=== PATIENT | female | born 1985 ===

== ENCOUNTER 2018-06-27 22:37 | Emergency (ER) | payer OTHER ==
--- NOTE | 2018-06-27 23:12 | ER Document Report ---
ED Medical Screen (RME) - General Chief Complaint: Nausea/Vomiting Stated Complaint: FLU SYMPTOMS Time Seen by Provider: 06/27/18 23:10 Notes: Cough, body aches, flulike illness. Symptoms for 2 weeks. Nausea and vomiting and right sided low back pain today. I have treated and performed a rapid initial assessment of this patient. A comprehensive ED assessment and evaluation of the patient, analysis of test results and completion of medical decision making process will be conducted by additional ED providers. PHYSICAL EXAMINATION: GENERAL: Malaised appearing LUNGS: Breath sounds clear to auscultation bilaterally and equal. No wheezes rales or rhonchi. HEART: Regular rate and rhythm without murmurs, rubs, gallops. ABDOMEN: Soft, nondistended abdomen. No guarding, no rebound. Normal bowel sounds present. No CVA tenderness bilaterally. + mild epigastric tenderness (cannot elicit thorough abd exam w/o table, however). Extremities: No cyanosis, clubbing, or edema b/l. NEUROLOGICAL: Normal speech, normal gait. PSYCH: Normal mood, normal affect. TRAVEL OUTSIDE OF THE [place] IN LAST 30 DAYS: No - Related Data Allergies/Adverse Reactions: No Known Allergies Allergy (Unverified 06/27/18 22:38) Past Medical History - Social History Chew tobacco use (# tins/day): No Frequency of alcohol use: None Drug Abuse: None Renal/ Medical History: Denies: Hx Peritoneal Dialysis Physical Exam - Vital signs Vitals: Temp Pulse Resp BP Pulse Ox 99.6 F 100 17 146/77 H 99 06/27/18 22:43 06/27/18 22:43 06/27/18 22:43 06/27/18 22:43 06/27/18 22:43 Course - Vital Signs Vital signs: Temp Pulse Resp BP Pulse Ox 99.6 F 100 17 146/77 H 99 06/27/18 22:43 06/27/18 22:43 06/27/18 22:43 06/27/18 22:43 06/27/18 22:43
[2018-06-27 23:42] LABS: APPEARANCE,URINE SLIGHTLY-CLOUDY; BILIRUBIN,URINE NEGATIVE (NEGATIVE); COLOR,URINE YELLOW; GLUCOSE, URINE NEGATIVE (NEGATIVE); KETONES,URINE 20 mg/dL (NEGATIVE); LEUKOCYTE ESTERASE,URINE LARGE (NEGATIVE); NITRITE,URINE NEGATIVE (NEGATIVE); PROTEIN,URINE NEGATIVE (NEGATIVE); URINE SPECIFIC GRAVITY 1.012
[2018-06-27 23:55] LABS: A TYPE INFLUENZA AG NEGATIVE (NEGATIVE); B INFLUENZA AG NEGATIVE (NEGATIVE)
--- NOTE | 2018-06-28 00:39 | RADIOLOGY REPORT (SQ) ---
CLINICAL HISTORY: cough, fevers COMPARISON: None. TECHNIQUE: XR CHEST 2 VIEWS 06/27/2018 11:52 PM CAN DRAGGER FINDINGS: Cardiac silhouette is normal in size. There is an 11 mm nodule in the anterior chest seen on the lateral view only. There is no pleural effusion. There is no pneumothorax. There are no acute osseous findings. IMPRESSION: Indeterminate 11 mm anterior urinary nodule. Recommend unenhanced chest CT.
[2018-06-28] MEDS ORDERED: ACETAMINOPHEN 325 MG TABLET PO ONE (01:09)
[2018-06-28] MEDS ORDERED: ACETAMINOPHEN 325 MG TABLET ONE (01:09)
--- NOTE | 2018-06-28 01:39 | RADIOLOGY REPORT (SQ) ---
CT CHEST WITHOUT IV CONTRAST HISTORY: Cough. Fever. COMPARISON: Radiographs from earlier the same day. TECHNIQUE: CT scan of the chest without IV contrast. This exam was performed according to our departmental dose-optimization program, which includes automated exposure control, adjustment of the mA and/or kV according to patient size and/or use of iterative reconstruction technique. FINDINGS: The thyroid gland is normal. No mediastinal adenopathy. No mediastinal or axillary adenopathy. Limited evaluation for hilar adenopathy without IV contrast. The heart size is normal without pericardial effusion. There are scattered nodular opacities in the lingula, left lower lobe, right middle lobe, and right lower lobe. No pleural effusions or pneumothorax. The visualized upper abdomen demonstrates no acute findings. The osseous structures are intact. IMPRESSION: Nodular groundglass opacities in both lungs, but most prominent in the anterior lingula and right middle lobe. This may represent multifocal infection.
[2018-06-28] MEDS ORDERED: AMOXICILLIN TR/POT CLAVULANATE 500-125 MG TAB PO ONE (02:03)
[2018-06-28 02:28] VITALS: BP 111/69
--- NOTE | 2018-06-28 02:35 | ER Document Report ---
Entered by DENEEN GRAVES SCRIBE 06/28/18 0020 Acting as scribe for:APRYL LAWRENCE DO ED Flu Like - General Chief Complaint: Nausea/Vomiting Stated Complaint: FLU SYMPTOMS Time Seen by Provider: 06/27/18 23:10 Primary Care Provider: MARTHA ROGERS MD [ACTIVE STAFF] - Follow up as needed Mode of Arrival: Ambulatory Information source: Patient Notes: 33-year-old female who presents to the emergency department today with complaints of "flu-like symptoms". Patient states she has positive sick contacts at home as the person she lives with has influenza. Patient states she has a productive cough with thick and green sputum. Patient states she has slight abdominal pain, back pain, nausea, vomiting, and pain with breathing. Patient denies any dysuria, recent usage of steroids, or immunosuppressants. TRAVEL OUTSIDE OF THE [place] IN LAST 30 DAYS: No - Related Data Allergies/Adverse Reactions: No Known Allergies Allergy (Unverified 06/27/18 22:38) Past Medical History - General Information source: Patient - Social History Smoking Status: Current Every Day Smoker Cigarette use (# per day): Yes Chew tobacco use (# tins/day): No Frequency of alcohol use: None Drug Abuse: None Lives with: Family Family History: Reviewed & Not Pertinent Patient has suicidal ideation: No Patient has homicidal ideation: No - Medical History Medical History: Negative Surgical Hx: Negative Review of Systems - Review of Systems Constitutional: See HPI, Chills, Fever EENT: No symptoms reported Cardiovascular: No symptoms reported Respiratory: See HPI, Cough, Hurts to breathe Gastrointestinal: See HPI, Abdominal pain, Nausea, Vomiting Genitourinary: denies: Dysuria Female Genitourinary: No symptoms reported Musculoskeletal: See HPI, Back pain Skin: No symptoms reported Hematologic/Lymphatic: No symptoms reported Neurological/Psychological: No symptoms reported -: Yes All other systems reviewed and negative Physical Exam - Vital signs Vitals: Temp Pulse Resp BP Pulse Ox 99.6 F 100 17 146/77 H 99 06/27/18 22:43 06/27/18 22:43 06/27/18 22:43 06/27/18 22:43 06/27/18 22:43 - Notes Notes: PHYSICAL EXAM GENERAL: Alert, interacts well. No acute distress. HEAD: Normocephalic, atraumatic. EYES: Pupils equal, round, and reactive to light. Extraocular movements intact. Sounds congested when speaking. ENT: Oral mucosa moist, tongue midline. NECK: Full range of motion. Supple. Trachea midline. LUNGS: Clear to auscultation bilaterally, no wheezes, rales, or rhonchi. No respiratory distress. Dry cough. HEART: Regular rate and rhythm. No murmurs, gallops, or rubs. ABDOMEN: Soft, non-tender. Non-distended. Bowel sounds present in all 4 quadrants. No guarding, rigidity, or rebound. BACK: Slight left sided CVA tenderness to percussion. EXTREMITIES: Moves all 4 extremities spontaneously. No edema, radial and dorsalis pedis pulses 2/4 bilaterally. No cyanosis. NEUROLOGICAL: Alert and oriented x3. Normal speech. PSYCH: Normal affect, normal mood. SKIN: Warm, dry, normal turgor. No rashes or lesions noted. Course - Re-evaluation Re-evalutation: 06/28/18 02:13 Chest x-ray showed anterior pulmonary nodule that radiology recommended we evaluate with a noncontrast CT scan of the chest. The dictation actually initially said anterior urinary so I did call and clarify this with the radiologist who stated that it was a typo and it was supposed to say pulmonary not urinary. He did recommend that with a history of fever and cough and shortness of breath that I could get a noncontrasted CAT scan now and evaluate both the nodule and possible small pneumonias. I did then order the CT scan of the chest that showed multifocal groundglass opacities which when combined with the clinical exam are concerning for possible multifocal pneumonia. Patient opal l be treated with Augmentin. Patient's urinalysis does show large leukocyte esterase but it also shows 10 squames epithelial cells. Suspect this is contamination. Flu swab is negative. test is negative. - Vital Signs Vital signs: Temp Pulse Resp BP Pulse Ox 98.4 F 86 17 111/69 98 06/28/18 02:25 06/28/18 02:25 06/28/18 02:25 06/28/18 02:25 06/28/18 02:25 - Laboratory Laboratory results interpreted by me: 06/27/18 23:27 Urine Ketones 20 H Urine Urobilinogen 2.0 H Ur Leukocyte Esterase LARGE H Discharge - Discharge Clinical Impression: Multifocal pneumonia Condition: Stable Disposition: HOME, SELF-CARE Additional Instructions: Pneumonia Your examination indicates that you have pneumonia. This is an infection of the lung tissue, usually caused by bacteria or a virus. Symptoms include cough, fever, shaking chills, chest pain, shortness of breath, and coughing up bloody sputum. Treatment for bacterial pneumonia includes rest, antibiotics for 10 to 14 days, increasing your clear liquid intake, a cool mist humidifier at your bedside, and fever medication. Often, a repeat chest X-ray is performed in a few weeks--even if you feel better--to ascertain whether the infection has completely resolved and no underlying lung problem is present. You should call the physician if you develop persistent vomiting, high fever that does not respond to fever medication, increasing shortness of breath, confusion, or lethargy. Also, failure to improve within two to three days is an indication for re-examination. After you finish your antibiotics if you develop a yeast infection please take the Diflucan. Prescriptions: Amox Tr/Potassium Clavulanate [Augmentin 875-125 Tablet] 1 tab PO BID #14 tablet Fluconazole [Diflucan] 150 mg PO ONCE PRN #1 tablet PRN Reason: Referrals: MARTHA ORGERS MD [ACTIVE STAFF] - Follow up as needed Scribe Attestation: 06/28/18 02:35 I personally performed the services described in the documentation, reviewed and edited the documentation which was dictated to the scribe in my presence, and it accurately records my words and actions. I personally performed the services described in the documentation, reviewed and edited the documentation which was dictated to the scribe in my presence, and it accurately records my words and actions.
== END 2018-06-28 02:26 | disposition home or self-care (01) ==
LOC: ER 22:37
DX: J18.8 Other pneumonia, unspecified organism (principal); R11.2 Nausea with vomiting, unspecified; R05 Cough; R10.9 Unspecified abdominal pain; M54.9 Dorsalgia, unspecified; F17.210 Nicotine dependence, cigarettes, uncomplicated
CPT/HCPCS: 71046; 71250; 81001; 81025; 87086; 87088; 87804; 99284

== ENCOUNTER 2019-04-12 13:17 | Emergency (ER) | payer OTHER ==
--- NOTE | 2019-04-12 13:47 | ER Document Report ---
ED Medical Screen (RME) - General Chief Complaint: Eye Injury Stated Complaint: EYE INJURY Time Seen by Provider: 04/12/19 13:43 Mode of Arrival: Ambulatory Information source: Patient Notes: 33-year-old female presents with left eyelid swelling ecchymosis. Reports it does not hurt that much but her eyelid her left eye is very swollen. Patient reports she was playing football and got tackled. ELKIN I have greeted and performed a rapid initial assessment of this patient. A comprehensive ED assessment and evaluation of the patient, analysis of test results and completion of the medical decision making process will be conducted by additional ED providers. Dictation of this chart was performed using voice recognition software; therefore, there may be some unintended grammatical e rrors. TRAVEL OUTSIDE OF THE [place] IN LAST 30 DAYS: No - Related Data Allergies/Adverse Reactions: No Known Allergies Allergy (Verified 04/12/19 13:41) Past Medical History Renal/ Medical History: Denies: Hx Peritoneal Dialysis Physical Exam - Vital signs Vitals: Temp Pulse Resp BP Pulse Ox 98.7 F 101 H 16 142/82 H 99 04/12/19 13:37 04/12/19 13:37 04/12/19 13:37 04/12/19 13:37 04/12/19 13:37 Course - Vital Signs Vital signs: Temp Pulse Resp BP Pulse Ox 98.7 F 101 H 16 142/82 H 99 04/12/19 13:37 04/12/19 13:37 04/12/19 13:37 04/12/19 13:37 04/12/19 13:37
[2019-04-12] MEDS ORDERED: OXYCODONE-ACETAMINOPHEN 5-325 MG TABLET PO ONE (14:11)
[2019-04-12] MEDS ORDERED: IBUPROFEN 800 MG TABLET PO ONE (14:11)
--- NOTE | 2019-04-12 14:13 | RADIOLOGY REPORT (SQ) ---
EXAM DESCRIPTION: CT ORBIT/SELLA WITHOUT COMPLETED DATE/TIME: 04/12/2019 1:59 pm REASON FOR STUDY: left eye injury COMPARISON: None. TECHNIQUE: Noncontrasted images through the orbits windowed for bone and soft tissue. Additional co alejandro and sagittal reconstructed images reviewed. All images stored on PACS. All CT scanners at this facility use dose modulation, iterative reconstruction, and/or weight based d osing when appropriate to reduce radiation dose to as low as reasonably achievable (ALARA). [facility]: Dose Right [facility]: CareDose [facility]: Dose Right [facility]: Teradose 4D [facility]: [employer] RADIATION DOSE: CT Rad equipment meets quality standard of care and radiation dose reduction techniq ues were employed. CTDIvol: 30.4 mGy. DLP: 448 mGy-cm. mGy. LIMITATIONS: None. FINDINGS: FACIAL BONES: No fracture or bone lesion. ORBITS: Left proptosis. Globe itself looks maintained in volume and overall density but is displaced anteriorly and inferiorly. There is no retro-orbital hematoma. Extensive preseptal soft tissue swe lling without gross foreign body. PARANASAL SINUSES: Clear. No significant mucosal thickening, mass or fluid. No nasal polyps. Maxilla ry sinus outlets are patent. SOFT TISSUES: As above. Soft tissues are otherwise normal. INFERIOR BRAIN: Limited view. No acute findings. OTHER: No other significant finding. IMPRESSION: 1. No evidence of orbit fracture. 2. There is significant left proptosis, however. The globe looks intact. No significant retro-orbit al mass or hematoma detected. TECHNICAL DOCUMENTATION: JOB ID: [id number] Quality ID # [id number]: Final reports with documentation of one or more dose reduction techniques (e.g., Au tomated exposure control, adjustment of the mA and/or kV according to patient size, use of iterative reconstruction technique) 2010 [employer]- All Rights Reserved Reading location - IP/workstation name: [email or web address]
--- NOTE | 2019-04-12 14:16 | ER Document Report ---
ED Eye Complaint - General Chief Complaint: Eye Injury Stated Complaint: EYE INJURY Time Seen by Provider: 04/12/19 13:43 Primary Care Provider: [facility] [Primary Care Provider] - Follow up as needed Mode of Arrival: Ambulatory Notes: Ms. Alves is a 33-year-old otherwise healthy female presenting to the ED after being involved in a collision while playing football. Patient is unsure if it was a near other body part that hit her eye. She denies any LOC or significant other trauma. She is does endorse some pressure and mild eye pain with extraocular motions. She states that she is able to open her eye with her 2 hands however her vision seems blurrier and decreased in the left compared to the right. Patient denies any use of blood thinners. TRAVEL OUTSIDE OF THE [place] IN LAST 30 DAYS: No - Related Data Allergies/Adverse Reactions: No Known Allergies Allergy (Verified 04/12/19 13:41) Past Medical History - General Information source: Patient - Social History Smoking Status: Current Every Day Smoker Chew tobacco use (# tins/day): No Frequency of alcohol use: None Drug Abuse: None Family History: Reviewed & Not Pertinent Patient has suicidal ideation: No Patient has homicidal ideation: No Renal/ Medical History: Denies: Hx Peritoneal Dialysis Review of Systems - Review of Systems Constitutional: See HPI EENT: See HPI Cardiovascular: No symptoms reported Respiratory: No symptoms reported Gastrointestinal: No symptoms reported Genitourinary: No symptoms reported Female Genitourinary: No symptoms reported Musculoskeletal: No symptoms reported Skin: No symptoms reported Hematologic/Lymphatic: No symptoms reported Neurological/Psychological: No symptoms reported Physical Exam - Vital signs Vitals: Temp Pulse Resp BP Pulse Ox 98.7 F 101 H 16 142/82 H 99 04/12/19 13:37 04/12/19 13:37 04/12/19 13:37 04/12/19 13:37 04/12/19 13:37 Interpretation: Tachycardic - General General appearance: Appears well, Alert - HEENT Head: Normocephalic, Ecchymosis Eyes: Normal, Periorbital ecchymosis, Periorbital edema, Other - Left eye is significantly swollen, proptotic and ecchymotic. Extraocular movements intact: Yes - Patient is able to move her extraocular motions however she has pain with m Eyelashes: Normal Pupils: PERRL -: left: Nonreactive - Eye is reactive however sluggish in comparison to the right eye. Visual acuity- Right eye: 20/25 Visual acuity- Left eye: 20/70 Visual acuity- Both eyes: 20/25 Corrective lenses worn: No Left intraocular pressure: pre-, 21,23. Notes: 1530 IOP: 26, 28, 24 Post lateral canthotomy 1533 IOP: 22, 21, 19 After lateral canthotomy, left eye pupil was significantly quicker to react to light and no longer sluggish. She did endorse decreased pressure, pain and tension with extraocular movements. - Respiratory Respiratory status: No respiratory distress Chest status: Nontender Breath sounds: Normal Chest palpation: Normal - Cardiovascular Rhythm: Regular Heart sounds: Normal auscultation Murmur: No - Abdominal Inspection: Normal Distension: No distension Bowel sounds: Normal Tenderness: Nontender Organomegaly: No organomegaly - Back Back: Normal, Nontender - Extremities General upper extremity: Normal inspection, Nontender, Normal color, Normal ROM, Normal temperature General lower extremity: Normal inspection, Nontender, Normal color, Normal ROM, Normal temperature, Normal weight bearing. No: Silvio's sign - Neurological Neuro grossly intact: Yes Cognition: Normal Orientation: AAOx4 [place] Coma Scale Eye Opening: Spontaneous [place] Coma Scale Verbal: Oriented [place] Coma Scale Motor: Obeys Commands [place] Coma Scale Total: 15 Speech: Normal Motor strength normal: LUE, RUE, LLE, RLE Sensory: Normal - Psychological Associated symptoms: Normal affect, Normal mood - Skin Skin Temperature: Warm Skin Moisture: Dry Skin Color: Normal Course - Re-evaluation Re-evalutation: Patient is generally well-appearing and nontoxic. Initial vitals notable for mild tachycardia. Differential diagnosis includes superficial contusion, superficial ecchymosis, retrobulbar hematoma Patient's exam is clinically concerning. She does have a change in vision from 20/25 on the right to 20/70. She also has significant proptosis as well as decrease in pupillary response with light reflex. I personally looked at the CT myself. I feel that there is some hyperechoic material to the medial and lateral rectus muscles just posterior to the globe. This is concerning for acute bleeding given the extension anteriorly to the superficial eye. I feel that this is concerning for an early retrobulbar hematoma/bleed. 12/15/19 14:25 Called radiologist to discuss CT read. He agrees that there is some hyperechoic regions posteriorly however a full hematoma has not developed yet or is not causing any compressive signs yet. 04/12/19 14:28 Calling radiology to speak to [facility] Ophthalmology studio operation engineer. 04/12/19 14:34 Spoke to [facility] transfer alexis. Will page ophthalmology now and call back. 04/12/19 14:43 Spoke to [facility]. Agrees with lateral canthotomy being performed here. I will perform here in the ED. Patient will have an ED to ED to transfer 04/12/19 14:[address] Mejia. Accepted pt for transfer. 04/12/19 15:47 Procedure was performed at approximately 1515. Patient tolerated procedure well. Prior to procedure, patient was medicated with 4 mg of Zofran and 4 mg of morphine. The entire procedure was performed under sterile technique. The lateral canthus was cleaned with Betadine. Approximately 10 to 15 mL's of 1% lidocaine with epi was injected lateral to the left lateral canthus with a 27g needle. The lateral canthus was crushed with the forceps. Approximately a 1cm incision was performed with scissors just lateral to the left lateral canthus. Approximately 10 to 15 mL's of blood was evacuated. Patient endorsed significant improvement in pressure and decrease in discomfort with extraocular motions. Repeat IOP pressures were performed however they remain somewhat elevated at 26, 28 and 24. The incision was extended approximately an additional half a centimeter and post procedure pressures were 22, 21 and 19. Patient had return of brisk pupillary response. - Vital Signs Vital signs: Temp Pulse Resp BP Pulse Ox 98.7 F 101 H 16 142/82 H 99 04/12/19 13:42 04/12/19 13:42 04/12/19 13:42 04/12/19 13:42 04/12/19 13:42 Critical Care Note - Critical Care Note Total time excluding time spent on procedures (mins): 30 - Multiple re- evaluations, multiple examinations of intraocular pressure, risks include loss of vision. Need of transfer and emergent procedure. Discharge - Discharge Clinical Impression: Retrobulbar hemorrhage Ecchymosis of left eye Qualifiers: Encounter type: initial encounter Qualified Code(s): S05.12XA - Contusion of eyeball and orbital tissues, left eye, initial encounter Left eye trauma Qualifiers: Encounter type: initial encounter Qualified Code(s): S05.92XA - Unspecified injury of left eye and orbit, initial encounter Condition: Fair Disposition: [facility] Admitting Provider: Dr. Mejia Referrals: [facility] [Primary Care Provider] - Follow up as needed
[2019-04-12] MEDS ORDERED: LIDOCAINE 1% INJ (10 MG/ML) 10 ML MDV INJ ONE (14:44)
[2019-04-12] MEDS ORDERED: ONDANSETRON HCL INJ/PF 4 MG/2 ML SDV IV ONE (15:04)
[2019-04-12] MEDS ORDERED: MORPHINE SULFATE 10 MG/ML INJ IV ONE (15:04)
[2019-04-12 15:57] VITALS: BP 117/74
== END 2019-04-12 15:57 | disposition short-term general hospital (02) ==
LOC: ER 13:17
PROC: 0HQ1XZZ Repair Face Skin, External Approach (ICD-10-PCS; principal; 2019-04-12)
DX: S05.12XA Contusion of eyeball and orbital tissues, left eye, initial encounter (principal); S05.92XA Unspecified injury of left eye and orbit, initial encounter; H05.232 Hemorrhage of left orbit; H53.8 Other visual disturbances; W51.XXXA Accidental striking against or bumped into by another person, initial encounter; Y93.61 Activity, american tackle football
CPT/HCPCS: 12011; 99285; 96374; 96375; 70480; J2270; J2405

== ENCOUNTER → 2019-08-19 | Outpatient (CLI) | payer OTHER ==
[2019-08-19 09:38] LABS: APPEARANCE,URINE CLEAR; BILIRUBIN,URINE NEGATIVE (NEGATIVE); COLOR,URINE YELLOW; GLUCOSE, URINE NEGATIVE (NEGATIVE); KETONES,URINE NEGATIVE (NEGATIVE); LEUKOCYTE ESTERASE,URINE SMALL (NEGATIVE); NITRITE,URINE NEGATIVE (NEGATIVE); PROTEIN,URINE NEGATIVE (NEGATIVE); URINE SPECIFIC GRAVITY 1.012; UROBILINOGEN,URINE NEGATIVE mg/dL (<2.0)
[2019-08-19 09:43] LABS: ABSOLUTE EOSINOPHILS # (AUTO) 0.3 10^3/uL (0.0-0.6); ABSOLUTE LYMPHOCYTES (AUTO) 1.3 10^3/uL (0.5-4.7); ABSOLUTE MONOCYTES (AUTO) 0.3 10^3/uL (0.1-1.4); ABSOLUTE NEUT (AUTO) 3.5 10^3/uL (1.7-8.2); BASOPHILS % (AUTO) 0.7 % (0-2); EOSINOPHILS % (AUTO) 4.7 % (0-6); HEMATOCRIT 40.3 % (36.0-47.0); HEMOGLOBIN 14.2 g/dL (12.0-15.5); LYMPHOCYTES % (AUTO) 23.7 % (13-45); MEAN CORPUSCULAR HEMOGLOBIN 30.7 pg (27.0-33.4); MEAN CORPUSCULAR HGB CONC 35.3 g/dL (32.0-36.0); MEAN CORPUSCULAR VOLUME 87 fl (80-97); MONOCYTES % (AUTO) 6.4 % (3-13); PLATELET COUNT 236 10^3/uL (150-450); RED BLOOD COUNT 4.64 10^6/uL (3.72-5.28); RED CELL DISTRIBUTION WIDTH 13.1 % (11.5-14.0); SEGMENTED NEUTROPHILS % (AUTO) 64.5 % (42-78); TOTAL CELLS COUNTED % (AUTO) 100 %; WHITE BLOOD COUNT 5.5 10^3/uL (4.0-10.5)
[2019-08-19 10:00] LABS: ALBUMIN 4.6 g/dL (3.5-5.0); ALKALINE PHOSPHATASE 71 U/L (38-126); ANION GAP 6 (5-19); ASPARTATE AMINO TRANSFERASE 23 U/L (14-36); BILIRUBIN,TOTAL 0.6 mg/dL (0.2-1.3); BLOOD UREA NITROGEN 11 mg/dL (7-20); CALCIUM 9.4 mg/dL (8.4-10.2); CARBON DIOXIDE 28 mmol/L (22-30); CHLORIDE 104 mmol/L (98-107); GLUCOSE 82 mg/dL (75-110); POTASSIUM 4.5 mmol/L (3.6-5.0)
== END ==
LOC: OD 08:33
PROVIDERS: ATTEND Nurse Practitioner Family
DX: R10.13 Epigastric pain (principal)
CPT/HCPCS: 36415; 80053; 81001; 83690; 85025

== ENCOUNTER 2019-10-15 12:00 | Emergency (ER) | payer MEDICAID, OTHER ==
--- NOTE | 2019-10-15 13:22 | ER Document Report ---
ED General - General Chief Complaint: Diarrhea Stated Complaint: MUSCLE PAIN,DIZZINESS,FEVER Time Seen by Provider: 10/15/19 13:01 Primary Care Provider: RODDY SAMANIEGO FNP [Primary Care Provider] - Follow up as needed TRAVEL OUTSIDE OF THE [place] IN LAST 30 DAYS: No - HPI Notes: 34-year-old female with a history of IBS presents to the emergency room for complaints of dizziness with an episode of diarrhea from her IBS. Patient states sometimes that when she does have bouts of IBS (diarrhea) that it does cause her to be dizzy. Patient states she recently completed her finals for school and is under a lot of stress. She was worried about her blood pressure because the last time she went to the her doctors they advised her blood pressure was a little elevated and they wanted her to monitor it. Patient states that she has not been monitoring it. Patient was concerned that her blood pressure was elevated and this is what was causing her dizziness. Has not tried any iogd-elo-rptehiw medications. Patient states that she had a little pain in her right forearm yesterday but it went away. Patient did make an appointment with her primary care provider to be seen tomorrow. States she did have a blood pressure cuff at home, she went to [facility] but it was broken so she came to the emergency room to get it checked out. Denies fevers, chills, chest pain,palpitations, shortness of breath, dyspnea, nausea, vomiting, abdominal pain, hematuria,blurred vision, double vision, loss of vision, speech changes, LH, dizziness, syncope, headaches, wheezing, ST, URI, neck pain, weakness, bowel or bladder dysfunction, saddle anesthesia, numbness or tingling in bilateral upper or lower extremities equally, muscle paralysis, weakness in bilateral upper or lower extremities equally or rash. Denies IV drug use. - Related Data Allergies/Adverse Reactions: No Known Allergies Allergy (Verified 04/12/19 13:41) Past Medical History - General Information source: Patient - Social History Smoking Status: Current Every Day Smoker Frequency of alcohol use: None Drug Abuse: None Family History: Reviewed & Not Pertinent Patient has homicidal ideation: No Renal/ Medical History: Denies: Hx Peritoneal Dialysis Psychiatric Medical History: Reports: Hx Depression Review of Systems - Review of Systems Constitutional: See HPI EENT: No symptoms reported Cardiovascular: No symptoms reported Respiratory: No symptoms reported Gastrointestinal: No symptoms reported Genitourinary: No symptoms reported Female Genitourinary: No symptoms reported Musculoskeletal: No symptoms reported Skin: No symptoms reported Hematologic/Lymphatic: No symptoms reported Neurological/Psychological: No symptoms reported Physical Exam - Vital signs Vitals: Temp Pulse Resp BP Pulse Ox 98.2 F 84 18 131/98 H 100 10/15/19 12:51 10/15/19 12:51 10/15/19 12:51 10/15/19 12:51 10/15/19 12:51 - Notes Notes: 10/15/19 15:57 MEDICATIONS: I agree with the patient medications as charted by the RN. ALLERGIES: I agree with the allergies as charted by the RN. PAST MEDICAL HISTORY/PAST SURGICAL HISTORY: Reviewed and agree as charted by RN. SOCIAL HISTORY: Reviewed and agree as charted by RN. FAMILY HISTORY: No significant familial comorbid conditions directly related to patient complaint EXAM: Reviewed vital signs as charted by RN. PHYSICAL EXAMINATION: reviewed vital signs by RN GENERAL: Well-appearing, well-nourished and in no acute distress. HEAD: Atraumatic, normocephalic. EYES: Pupils equal round and reactive to light, extraocular movements intact, conjunctiva are normal. ENT: Nares patent, oropharynx clear without exudates. Moist mucous membranes. NECK: Normal range of motion, supple without lymphadenopathy LUNGS: Breath sounds clear to auscultation bilaterally and equal. No wheezes rales or rhonchi. HEART: Regular rate and rhythm without murmurs ABDOMEN: Soft, nontender, nondistended abdomen. No guarding, no rebound. No masses appreciated. No CVA tenderness appreciated bilaterally Female : deferred Musculoskeletal: Normal range of motion, no pitting or edema. No cyanosis. NEUROLOGICAL: Cranial nerves grossly intact. Normal speech, normal gait. Normal sensory, motor exams. PERRLA, EOMI. Full motor and sensory function throughout. Application Support Developer + 2 equal bilaterally in BUE. Tongue midline. No pronator dr ift. No ataxia. Neck with APROM. Raises eyebrows. Strength is 5 out of 5 in bilateral upper and lower extremities equally.Speaks in full sentences. No weakness on one side. Romberg gait steady able to walk straight line. Able to recall 5 objects. [place] test positive PSYCH: Normal mood, normal affect. SKIN: Warm, Dry, normal turgor, no rashes or lesions noted. 10/15/19 15:57 Course - Re-evaluation Re-evalutation: 10/15/19 15:58 Afebrile vital stable no distress. Nurses notes reviewed. EKG negative for STEMI. CBC negative for leukocytosis or anemia, CMP negative for hepatic or renal dysfunction, no electrolyte disturbances. EKG negative for STEMI, no ST segment changes,Urinalysis negative for leukoesterase, hCG negative. Patient states that she feels better. Discussed with patient will provide her a prescription for meclizine which is a anti-dizzy medication which helps her vertigo - Vital Signs Vital signs: Temp Pulse Resp BP Pulse Ox 98.2 F 84 18 131/98 H 100 10/15/19 12:58 10/15/19 12:51 10/15/19 12:51 10/15/19 12:51 10/15/19 12:51 - Laboratory Result Diagrams: 10/15/19 14:08 10/15/19 14:08 Laboratory results interpreted by me: 10/15/19 14:08 Urine Blood SMALL H Discharge - Discharge Clinical Impression: Dizziness Condition: Stable Disposition: HOME, SELF-CARE Instructions: Dizziness ([facility]) Additional Instructions: All of your labs and EKG were normal as well as your chest x-ray. Your vitals have been stable. Please follow-up with your primary care provider tomorrow at your already scheduled appointment. If you experience any worsening symptoms, fever, chest pain shortness of breath return to the emergency return immediately for any new or worsening symptoms. Follow up with primary care provider, call tomorrow to make followup appointment. Prescriptions: Meclizine HCl 25 mg PO TID PRN #30 tablet PRN Reason: Forms: Return to Work Referrals: RODDY SAMANIEGO FNP [Primary Care Provider] - Follow up tomorrow (At your already scheduled appointment)
[2019-10-15 14:29] LABS: ABSOLUTE EOSINOPHILS # (AUTO) 0.2 10^3/uL (0.0-0.6); ABSOLUTE LYMPHOCYTES (AUTO) 1.4 10^3/uL (0.5-4.7); ABSOLUTE MONOCYTES (AUTO) 0.3 10^3/uL (0.1-1.4); ABSOLUTE NEUT (AUTO) 3.8 10^3/uL (1.7-8.2); BASOPHILS % (AUTO) 0.5 % (0-2); EOSINOPHILS % (AUTO) 3.6 % (0-6); HEMATOCRIT 43.9 % (36.0-47.0); HEMOGLOBIN 15.2 g/dL (12.0-15.5); LYMPHOCYTES % (AUTO) 24.3 % (13-45); MEAN CORPUSCULAR HEMOGLOBIN 30.9 pg (27.0-33.4); MEAN CORPUSCULAR HGB CONC 34.6 g/dL (32.0-36.0); MEAN CORPUSCULAR VOLUME 89 fl (80-97); MONOCYTES % (AUTO) 6.1 % (3-13); PLATELET COUNT 247 10^3/uL (150-450); RED BLOOD COUNT 4.91 10^6/uL (3.72-5.28); RED CELL DISTRIBUTION WIDTH 12.9 % (11.5-14.0); SEGMENTED NEUTROPHILS % (AUTO) 65.5 % (42-78); TOTAL CELLS COUNTED % (AUTO) 100 %; WHITE BLOOD COUNT 5.7 10^3/uL (4.0-10.5)
[2019-10-15 14:30] LABS: APPEARANCE,URINE CLEAR; BILIRUBIN,URINE NEGATIVE (NEGATIVE); COLOR,URINE STRAW; GLUCOSE, URINE NEGATIVE (NEGATIVE); KETONES,URINE NEGATIVE (NEGATIVE); LEUKOCYTE ESTERASE,URINE NEGATIVE (NEGATIVE); NITRITE,URINE NEGATIVE (NEGATIVE); PROTEIN,URINE NEGATIVE (NEGATIVE); URINE SPECIFIC GRAVITY 1.005; UROBILINOGEN,URINE NEGATIVE mg/dL (<2.0)
[2019-10-15 14:43] LABS: ALBUMIN 4.6 g/dL (3.5-5.0); ALKALINE PHOSPHATASE 73 U/L (38-126); ANION GAP 6 (5-19); ASPARTATE AMINO TRANSFERASE 21 U/L (14-36); BILIRUBIN,TOTAL 0.6 mg/dL (0.2-1.3); BLOOD UREA NITROGEN 8 mg/dL (7-20); CALCIUM 9.6 mg/dL (8.4-10.2); CARBON DIOXIDE 29 mmol/L (22-30); CHLORIDE 103 mmol/L (98-107); GLUCOSE 82 mg/dL (75-110); POTASSIUM 4.2 mmol/L (3.6-5.0); TOTAL PROTEIN 8.1 g/dL (6.3-8.2)
[2019-10-15 16:01] VITALS: BP 120/80
--- NOTE | 2019-10-15 18:40 | EKG REPORT ---
SEVERITY:- NORMAL ECG - SINUS RHYTHM : Confirmed by: Alfonso Wilson MD 15-Oct-2019 18:39:33
== END 2019-10-15 16:03 | disposition home or self-care (01) ==
LOC: ER 12:00
DX: R42 Dizziness and giddiness (principal); K58.0 Irritable bowel syndrome with diarrhea; F17.200 Nicotine dependence, unspecified, uncomplicated
CPT/HCPCS: 36415; 80053; 81001; 81025; 85025; 93005; 93010; 99284

== ENCOUNTER → 2019-10-23 | Outpatient (CLI) | payer OTHER ==
--- NOTE | 2019-10-23 12:26 | RADIOLOGY REPORT (SQ) ---
EXAM DESCRIPTION: T SPINE AP/LAT IMAGES COMPLETED DATE/TIME: 10/23/2019 11:59 am REASON FOR STUDY: LOW BACK PAIN;THORACIC PAIN M54.5 LOW BACK PAIN M54.6 PAIN IN THORACIC SPINE COMPARISON: None. NUMBER OF VIEWS: Two views. TECHNIQUE: AP and lateral radiographic images acquired of the thoracic spine. LIMITATIONS: None. FINDINGS: MINERALIZATION: Normal. ALIGNMENT: Mild scoliosis in the upper to mid thoracic spine. VERTEBRAE: No fracture or bone lesion. Maintained height, normal segmentation. DISCS: No significant loss of height or significant narrowing. No large osteophytes. HARDWARE: None in the spine. MEDIASTINUM AND SOFT TISSUES: Normal heart size and aortic contour. No soft tissue abnormality. VISUALIZED LUNG MASON: Clear. OTHER: No other significant finding. IMPRESSION: Mild scoliosis. TECHNICAL DOCUMENTATION: JOB ID: [id number] 2010 [employer]- All Rights Reserved Reading location - IP/workstation name: [email or web address]
--- NOTE | 2019-10-23 12:27 | RADIOLOGY REPORT (SQ) ---
EXAM DESCRIPTION: LUMBAR SPINE COMPLETE IMAGES COMPLETED DATE/TIME: 10/23/2019 11:59 am REASON FOR STUDY: LOW BACK PAIN;THORACIC PAIN M54.5 LOW BACK PAIN M54.6 PAIN IN THORACIC SPINE COMPARISON: None. NUMBER OF VIEWS: Five views including obliques. TECHNIQUE: AP, lateral, oblique, and sacral radiographic images acquired of the lumbar spine. LIMITATIONS: None. FINDINGS: MINERALIZATION: Normal. SEGMENTATION: Normal. No transitional anatomy. ALIGNMENT: Normal. VERTEBRAE: Maintained height. No fracture or worrisome bone lesion. DISCS: Preserved height. No significant osteophytes or end plate irregularity. POSTERIOR ELEMENTS: Pedicles and facets are intact. No pars defect or posterior arch defects. HARDWARE: None in the spine. PARASPINAL SOFT TISSUES: Normal. PELVIS: Intact as visualized. No fractures or worrisome bone lesions. SI joints intact. OTHER: No other significant finding. IMPRESSION: NORMAL 5 VIEW LUMBAR SPINE. TECHNICAL DOCUMENTATION: JOB ID: [id number] 2010 [employer]- All Rights Reserved Reading location - IP/workstation name: [email or web address]
== END ==
LOC: OD 10:55
PROVIDERS: ATTEND Nurse Practitioner Family
DX: M54.5 Low back pain (principal); M41.84 Other forms of scoliosis, thoracic region; M54.6 Pain in thoracic spine
CPT/HCPCS: 72070; 72110

== ENCOUNTER 2020-05-22 10:54 | Emergency (ER) | payer OTHER ==
[2020-05-22 11:12] VITALS: BP 113/83
--- NOTE | 2020-05-22 11:20 | ER Document Report ---
HPI - HPI Patient complains to provider of: right foot injury Time Seen by Provider: 05/22/20 11:04 Pain Level: 4 Context: 34-year-old female past medical history significant for hypertension, IBS, depression presents to the emergency room complaining of persistent right foot pain. Patient states approximately 1 week ago at work she dropped a large heavy dish cart on her right foot while wearing soft shoes. States she sustained a laceration at the base of the right foot. Did not report or injury to the following day. States her employer refused as a Worker's Comp. case that she did not reported immediately. Her tetanus is up-to-date. States has been taking Tylenol with minimal relief no medications today. Has noticed increase redness and swelling to the base of the right great toe. Denies any chance of . Did not take any medications today. Associated Symptoms: None Exacerbated by: Movement, Walking Relieved by: Remaining still Similar symptoms previously: No Recently seen / treated by doctor: No - ROS Systems Reviewed and Negative: Yes All other systems reviewed and negative - CONSTITUTIONAL Constitutional: DENIES: Fever, Chills - REPRODUCTIVE LMP: 04/29/20 Reproductive: DENIES: : - MUSCULOSKELETAL Musculoskeletal: REPORTS: Extremity pain - DERM Skin Color: Erythema Skin Problems: Abrasion Past Medical History - General Information source: Patient - Social History Smoking Status: Current Every Day Smoker Chew tobacco use (# tins/day): No Frequency of alcohol use: None Drug Abuse: None Family History: Reviewed & Not Pertinent Patient has homicidal ideation: No - Past Medical History Cardiac Medical History: Reports: Hx Hypertension - no meds Renal/ Medical History: Denies: Hx Peritoneal Dialysis Psychiatric Medical History: Reports: Hx Depression Vertical Provider Document - CONSTITUTIONAL Agree With Documented VS: Yes Exam Limitations: No Limitations General Appearance: Mild Distress - INFECTION CONTROL TRAVEL OUTSIDE OF THE [place] IN LAST 30 DAYS: No - HEENT HEENT: Atraumatic, Normocephalic - NECK Neck: Normal Inspection, Supple - RESPIRATORY Respiratory: Breath Sounds Normal, No Respiratory Distress - CARDIOVASCULAR Cardiovascular: Regular Rate, Regular Rhythm, No Murmur - MUSCULOSKELETAL/EXTREMETIES Musculoskeletal/Extremeties: Tender - Tenderness and swelling with erythema with a well-healing abrasion noted to the base of the right great toe. Full range of motion with flexion extension to the right great toe. No obvious deformity palpated. - NEURO Level of Consciousness: Awake, Alert, Appropriate Motor/Sensory: No Motor Deficit, No Sensory Deficit Notes: Positive right pedal pulse. Capillary refill less than 3 seconds. - DERM Integumentary: Warm, Dry Notes: Well-healing 1 cm abrasion noted to the base of the right great toe. Erythematous warm with tenderness to touch no active discharge or draining noted. Course - Re-evaluation Re-evalutation: 05/22/20 12:13 Patient is resting comfortably she is afebrile, she is nontoxic-appearing, ambulatory with slight limping noted to the right foot. Reviewed negative x-ray results with patient. Counseled take antibiotics as prescribed. Tylenol as needed for pain. Outpatient follow-up with primary care physician if not improving in 2 to 3 days. Patient was given strict return to the emergency room guidelines. Return for any new or worsening symptoms. All questions were answered. Patient verbalized understanding and agrees with plan of care. - Vital Signs Vital signs: Temp Pulse Resp BP Pulse Ox 98.8 F 82 16 113/83 100 05/22/20 11:11 05/22/20 11:11 05/22/20 11:11 05/22/20 11:11 05/22/20 11:11 - Laboratory Results Critical Laboratory Results Reviewed: No Critical Results - Radiology Results Critical Radiology Results Reviewed: No Critical Results Discharge - Discharge Clinical Impression: Contusion of right foot, initial encounter, Cellulitis of right foot Condition: Stable Disposition: HOME, SELF-CARE Instructions: Cellulitis ([facility]), Contusion ([facility]) Additional Instructions: Warm compresses 20 minutes 3 times a day. Antibiotics as prescribed. Tylenol as needed for pain. Follow-up with primary care physician if not improving in 2 to 3 days. Return to the emergency room for any new or worsening symptoms. Prescriptions: Cephalexin Monohydrate [Keflex 500 mg Capsule] 500 mg PO Q6H 10 Days #40 capsule Forms: Return to Work Referrals: MATTHEW RESTREOP NP [Primary Care Provider] - Follow up as needed
--- NOTE | 2020-05-22 12:00 | RADIOLOGY REPORT (SQ) ---
EXAM DESCRIPTION: FOOT RIGHT COMPLETE IMAGES COMPLETED DATE/TIME: 05/22/2020 11:34 am REASON FOR STUDY: injury COMPARISON: None. NUMBER OF VIEWS: Three views. TECHNIQUE: AP, lateral and oblique radiographic images acquired of the right foot. LIMITATIONS: None. FINDINGS: MINERALIZATION: Normal. BONES: No acute fracture or dislocation. No worrisome bone lesions. JOINTS: No effusions. SOFT TISSUES: No soft tissue swelling. No foreign body. OTHER: No other significant finding. IMPRESSION: NEGATIVE STUDY OF THE RIGHT FOOT. NO RADIOGRAPHIC EVIDENCE OF ACUTE INJURY. TECHNICAL DOCUMENTATION: JOB ID: [id number] 2010 [employer]- All Rights Reserved Reading location - IP/workstation name: [email or web address]
--- OUTSIDE RECORDS SUMMARY | 2020-05-24 10:42 | XMS REPORT ---
:1985 [address]ographics [address] [place] [address] Email Address Preferred Language [id number] Marital Status Unknown Yarsani Affiliation Unknown Race Unknown Additional Race(s) Unavailable Unavailable Ethnic Group Unknown [facility] [place] [address] [place] [id number] Care Team Providers Name Role Phone Lalo Attending Clinician Unavailable Adrian Attending Clinician Unavailable Hayder LOREDO Attending Clinician Unavailable Allergies, Adverse Reactions, Alerts Allergy Allergy Status Severity Reaction(s) Onset Inactive Treating C omments Name Type Date Date Clinician NAPROXEN Drug Active Unknown 2019-04 00:00:0 0 Medications This patient has no known medications. Problems This patient has no known problems. Procedures Procedure Date / Time Performed Performing Clinician Devic e OFFICE/OUTPATIENT VISIT EST 2019-11-23 09:45:00 OFFICE/OUTPATIENT VISIT NEW 2019-05-18 14:30:00 Results This patient has no known results. Assessments Condition Name Status Diagnosis Date Treating Clinici an Pain in thoracic spine Active Other chronic pain Active Unilateral inguinal hernia, w/o obst or Active gangrene, recurrent Right upper quadrant pain Active Other chronic pain Active Constipation, unspecified Active Unspecified skin changes Active Pain in thoracic spine Active Encounters Start End Encounter Admission Attending Care Care Encounter Date/Time Date/Time Type Type Clinicians Facility Department ID 2019-11-23 2019-11-23 Outpatient Lalo [facility] A [id number] 09:45:00 09:45:00 Jessica Children [id number] and [id number] [facility], 2019-05-18 2019-05-18 Outpatient Adrian [facility] [id number] 14:30:00 14:30:00 Cristi Children [id number] s [id number] and [id number] [facility], 2015-08-17 2015-08-18 Outpatient [facility] [id number] 20:50:00 05:13:00 YVONNE 45 Payers Payer Name Policy Type Policy Number Effective Date Expiration D ate Social History This patient has no known social history. Vital Signs Vital Name Observation Time Observation Value Comments WEIGHT 2015-08-17 20:50:00 70.500 kg HEIGHT 2015-08-17 20:50:00 165.346501 cm
== END 2020-05-22 12:17 | disposition home or self-care (01) ==
LOC: ER 10:54
DX: S90.31XA Contusion of right foot, initial encounter (principal); L03.115 Cellulitis of right lower limb; M79.671 Pain in right foot; X58.XXXA Exposure to other specified factors, initial encounter; F32.9 Major depressive disorder, single episode, unspecified; I10 Essential (primary) hypertension; F17.200 Nicotine dependence, unspecified, uncomplicated
CPT/HCPCS: 99283

== ENCOUNTER 2020-05-26 00:21 | Emergency (ER) | payer OTHER ==
[2020-05-26 02:45] LABS: ABSOLUTE EOSINOPHILS # (AUTO) 0.2 10^3/uL (0.0-0.6); ABSOLUTE LYMPHOCYTES (AUTO) 1.5 10^3/uL (0.5-4.7); ABSOLUTE MONOCYTES (AUTO) 0.4 10^3/uL (0.1-1.4); ABSOLUTE NEUT (AUTO) 3.6 10^3/uL (1.7-8.2); BASOPHILS % (AUTO) 0.7 % (0-2); EOSINOPHILS % (AUTO) 4.2 % (0-6); HEMATOCRIT 40.9 % (36.0-47.0); HEMOGLOBIN 13.6 g/dL (12.0-15.5); LYMPHOCYTES % (AUTO) 25.7 % (13-45); MEAN CORPUSCULAR HEMOGLOBIN 29.8 pg (27.0-33.4); MEAN CORPUSCULAR HGB CONC 33.3 g/dL (32.0-36.0); MEAN CORPUSCULAR VOLUME 90 fl (80-97); MONOCYTES % (AUTO) 7.7 % (3-13); PLATELET COUNT 258 10^3/uL (150-450); RED BLOOD COUNT 4.57 10^6/uL (3.72-5.28); RED CELL DISTRIBUTION WIDTH 12.8 % (11.5-14.0); SEGMENTED NEUTROPHILS % (AUTO) 61.7 % (42-78); TOTAL CELLS COUNTED % (AUTO) 100 %; WHITE BLOOD COUNT 5.8 10^3/uL (4.0-10.5)
[2020-05-26 02:55] LABS: APPEARANCE,URINE CLEAR; BILIRUBIN,URINE NEGATIVE (NEGATIVE); COLOR,URINE YELLOW; GLUCOSE, URINE NEGATIVE (NEGATIVE); KETONES,URINE NEGATIVE (NEGATIVE); LEUKOCYTE ESTERASE,URINE MODERATE (NEGATIVE); NITRITE,URINE NEGATIVE (NEGATIVE); PROTEIN,URINE NEGATIVE (NEGATIVE); UROBILINOGEN,URINE NEGATIVE mg/dL (<2.0)
--- NOTE | 2020-05-26 03:02 | ER Document Report ---
ED Psych Disorder / Suicide <ANTELMO PFEIFFER - Last Filed: 05/26/20 13:29> - General Mode of Arrival: Ambulatory Information source: Patient TRAVEL OUTSIDE OF THE [place] IN LAST 30 DAYS: No - Related Data Home Medications: PROZAC. TRAXODONE <RACHAEL LOWRY JR - Last Filed: 05/27/20 06:34> - General Chief Complaint: Suicidal Ideation Stated Complaint: CHEST PAIN ON LEFT SIDE Time Seen by Provider: 05/26/20 02:40 Primary Care Provider: [facility] [Provider Group] - 05/27/20 1:00 pm MATTHEW RESTREPO NP [NO LOCAL MD] - Follow up as needed Notes: 05/26/20 00:55 - ED Nursing Note by RODDY MCKEON Accsaqib Num: [id number] : 1985 Patient Age: [age] Y/O FEMALE PRESENTING WITH SI. PT REPORTS OF FEELING DOWN AND DEPRESSED OVER LAST FEW WEEKS. STOPPED TAKING ANTI-DEPRESSIVE. PLAN IS THE TAKE "ALLOT OF MY HTN MEDS". INAD AT THIS TIME. CALM AND APPROPRIATE. MY NOTES 34-year-old female arrives with chief complaint of having severe depression and also anxiety. She works at [employer] and injured her left toe and still continues to take Keflex for an infection for this. She also had an argument with her son's father nancy. Patient stopped her blood pressure medicines lisinopril and her psychiatric medicine her Prozac. She said these medicines made her feel badly. The lisinopril will drop her blood pressure while she was in a hot shower and the Prozac would make her feel odd feeling. Patient reports she has left-sided chest pain especially when she flexes her neck. She has a history of having a pinched neck nerve diagnosed around 1 year ago in [facility] [place]. Patient reports she took 5 to 6 tablets of her psychiatric medicine over the past several days but denies any attempt at suicidal overdose. I examined this patient with nursing staff. Patient was pleasant and a fair historian. She had some mild depression symptoms of eye avoidance and also looking down. (RACHAEL LOWRY JR) - Related Data Allergies/Adverse Reactions: naproxen Allergy (Mild, Verified 05/26/20 00:46) Throat itching Past Medical History - Social History Smoking Status: Current Every Day Smoker Cigarette use (# per day): Yes Chew tobacco use (# tins/day): No Smoking Education Provided: Yes Drug Abuse: None Lives with: Family Family History: Reviewed & Not Pertinent Patient has suicidal ideation: No Patient has homicidal ideation: No - Past Medical History Cardiac Medical History: Reports: Hx Hypertension - no meds Renal/ Medical History: Denies: Hx Peritoneal Dialysis Psychiatric Medical History: Reports: Hx Depression <RACHAEL LOWRY JR - Last Filed: 05/27/20 06:34> Review of Systems - Review of Systems Constitutional: No symptoms reported EENT: No symptoms reported Cardiovascular: No symptoms reported Respiratory: No symptoms reported Gastrointestinal: No symptoms reported Genitourinary: No symptoms reported Female Genitourinary: No symptoms reported Musculoskeletal: No symptoms reported Skin: No symptoms reported Hematologic/Lymphatic: No symptoms reported Neurological/Psychological: No symptoms reported -: Yes All other systems reviewed and negative <RACHAEL LOWRY JR - Last Filed: 05/27/20 06:34> Physical Exam - Vital signs Interpretation: Normal - General General appearance: Appears well, Alert - HEENT Head: Normocephalic, Atraumatic Eyes: Normal Pupils: PERRL - Respiratory Respiratory status: No respiratory distress Chest status: Nontender Breath sounds: Normal Chest palpation: Normal - Cardiovascular Rhythm: Regular Heart sounds: Normal auscultation Murmur: No - Abdominal Inspection: Normal Distension: No distension Bowel sounds: Normal Tenderness: Nontender Organomegaly: No organomegaly - Rectal Hemorrhoids: Other - deferred - Genitourinary Bimanuel exam: Other - deferred - Back Back: Normal, Nontender - Extremities General upper extremity: Normal inspection, Nontender, Normal color, Normal ROM, Normal temperature General lower extremity: Normal inspection, Nontender, Normal color, Normal ROM, Normal temperature, Normal weight bearing. No: Silvio's sign - Neurological Neuro grossly intact: Yes Cognition: Normal Orientation: AAOx4 Nicholson Coma Scale Eye Opening: Spontaneous Triston Coma Scale Verbal: Oriented Nicholson Coma Scale Motor: Obeys Commands Nicholson Coma Scale Total: 15 Speech: Normal Motor strength normal: LUE, RUE, LLE, RLE Sensory: Normal - Psychological Associated symptoms: Anxious, Decreased appetite, Depressed - Skin Skin Temperature: Warm Skin Moisture: Dry Skin Color: Normal <RACHAEL LOWRY JR - Last Filed: 05/27/20 06:34> - Vital signs Vitals: Temp Pulse Resp BP Pulse Ox 98.6 F 103 H 16 147/99 H 98 05/26/20 00:35 05/26/20 00:35 05/26/20 00:35 05/26/20 00:35 05/26/20 00:35 Course - Laboratory Results Result Diagrams: 05/26/20 01:48 05/26/20 01:48 <ANTELMO PFEIFFER - Last Filed: 05/26/20 13:29> - Laboratory Results Result Diagrams: 05/26/20 01:48 05/26/20 01:48 Critical Laboratory Results Reviewed: Yes Attending or Supervising Physician who Reviewed Labs: RACHAEL LOWRY JR - Radiology Results Critical Radiology Results Reviewed: Yes Attending or Supervising Physician who Reviewed Radiology: RACHAEL LOWRY JR <RACHAEL LOWRY JR - Last Filed: 05/27/20 06:34> - Vital Signs Vital signs: Temp Pulse Resp BP Pulse Ox 97.9 F 84 16 118/82 100 05/26/20 06:44 05/26/20 14:20 05/26/20 14:20 05/26/20 14:20 05/26/20 14:20 - Laboratory Results Laboratory Results Interpreted: 05/26/20 05/26/20 01:48 01:48 Ur Leukocyte Esterase MODERATE H Salicylates < 1.0 L Acetaminophen < 10 L Discharge <ANTELMO PFEIFFER - Last Filed: 05/26/20 13:29> <RACHAEL LOWRY JR - Last Filed: 05/27/20 06:34> - Discharge Clinical Impression: Suicidal ideation Condition: Stable Disposition: HOME, SELF-CARE Additional Instructions: You have been evaluated both medical and behavioral health teams and been deemed appropriate for discharge. An appointment with the local [facility] psychiatric team has been scheduled for you with Dr. Borja at 1 PM. This is a phone appointment. Please contact the [facility] today if you are unable to make this appointment. After that appointment they will be submitting a referral for therapy. DEPRESSION: Your evaluation reveals that you have mental depression. While symptoms may be vague, they often include disturbance of sleep, fatigue, loss of appetite, and general loss of interest in life. While depression may be a side effect of drugs, or a reaction to a major change in your life, many cases have no known cause. If depression is acute, and related to a major loss in your life, you can expect it to clear completely with time. If you have been depressed a long time, are prone to repeated bouts of depression or low mood, or have been thinking of suicide, get help. Depression can be treated with anti-depressant medication and counselling. Long-term depression will often take a few weeks to clear, even with appropriate medication. Follow-up care is important. SUICIDAL IDEATION: Suicidal ideation is a common medical term for thoughts about suicide, which may be as detailed as a formulated plan, without the suicidal act itself. Although most people who undergo suicidal ideation do not commit suicide, some go on to make suicide attempts. The range of suicidal ideation varies greatly from fleeting to detailed planning, role playing, and unsuccessful attempts. While thoughts about suicide are common, most people do not carry out serious actions to commit suicide. Based upon your evaluation and discussion with you, we do not believe you are currently at risk to act upon your thoughts of suicide. You have agreed to return to the Emergency Department, at any time, if you feel inclined to act upon your suicidal thoughts. FOLLOW-UP CARE: If you have been referred to a physician for follow-up care, call the physicians office for an appointment as you were instructed or within the next two days. If you experience worsening or a significant change in your symptoms, notify the physician immediately or return to the Emergency Department at any time for re-evaluation. Referrals: MATTHEW RESTREPO NP [NO LOCAL MD] - Follow up as needed [facility] [Provider Group] - 05/27/20 1:00 pm
[2020-05-26 03:03] LABS: ALBUMIN 4.2 g/dL (3.5-5.0); ALKALINE PHOSPHATASE 70 U/L (38-126); ANION GAP 8 (5-19); ASPARTATE AMINO TRANSFERASE 24 U/L (14-36); BILIRUBIN,DIRECT 0.1 mg/dL (0.0-0.4); BILIRUBIN,TOTAL 0.3 mg/dL (0.2-1.3); BLOOD UREA NITROGEN 12 mg/dL (7-20); CARBON DIOXIDE 26 mmol/L (22-30); CHLORIDE 106 mmol/L (98-107); GLUCOSE 86 mg/dL (75-110); POTASSIUM 4.1 mmol/L (3.6-5.0); TOTAL PROTEIN 7.4 g/dL (6.3-8.2); URINE AMPHETAMINES SCREEN NEGATIVE; URINE BARBITURATES SCREEN NEGATIVE; URINE BENZODIAZEPINES SCREEN NEGATIVE; URINE COCAINE SCREEN NEGATIVE; URINE MARIJUANA (THC) SCREEN NEGATIVE; URINE METHADONE SCREEN NEGATIVE; URINE PHENCYCLIDINE SCREEN NEGATIVE
[2020-05-26 03:04] LABS: ACETAMINOPHEN < 10 ug/mL (10-30); ALCOHOL < 10 mg/dL (NONE DETECTED); SALICYLATE < 1.0 mg/dL (2.0-20.0)
--- NOTE | 2020-05-26 04:32 | RADIOLOGY REPORT (SQ) ---
EXAM DESCRIPTION: XR CHEST 1 VIEW COMPLETED DATE/TME: 05/26/2020 03:30 CLINICAL HISTORY: 34 years Female, cp COMPARISON:Aug 27 2015 NUMBER OF VIEWS/TECHNIQUE: 1/AP FINDINGS: Increased lung volume, clear parenchyma, normal cardiac silhouette, and intact bony thorax. IMPRESSION: No acute cardiopulmonary findings.
--- NOTE | 2020-05-26 13:27 | PSYCHOLOGICAL NOTE ---
Psych Note - Psych Note Date seen by psych provider: 05/26/20 Time seen by psych provider: 12:47 Psych Note: Collateral Information and Care Coordination/Continuity of Care: At 1247 called [facility] She stated she would call back in 10 minutes. She called back and spoke to her from [phone]. She identified patient saw Dr. Borja 05/20/2020, she had stopped her prescribed Fluoxetine and Prazosin on her own, Cymbalta 30MG was added, she noted significant anxiety, and had just started new job. She identified patient was in the [facility] previously, got involved with the [facility] July 2019 and started going a little later in the year. Patient has phone appointment with Dr. Borja tomorrow (05/27/2020) at 1300 for follow up from crisis. Dr. Borja will put in therapy referral (could be via [facility] or outsourced civilian).
--- NOTE | 2020-05-26 13:41 | PSYCHOLOGICAL NOTE ---
Psych Note - Psych Note Date seen by psych provider: 05/26/20 Time seen by psych provider: 11:62 - 0850 Psych Note: Reason for Consult:Suicidal ideation Consent Permissions: None provided Patient arrived to [facility] ED via POV for suicidal ideation. 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 She demonstrated forward thought processes by discussing wanting to get her own place and possibly moving back to [place] where all of her support system is. Patient is alert and orientated to person, place, time and circumstance. Mood is overall euthymic with congruent affect. Clinician notes patient does become tearful when discussing stressors. Patient denies suicidal and homicidal ideation. Confirms making suicidal comment while upset denies intent. Delusions are absent and behaviors congruent with an intact reality based presentation i.e. organized and linear thought process. Eye contact was well maintained. Conversational speech is within normal rate, tone and prosody. Intellectual abilities appear to be within the average range. Attention and concentration is good. Insight, judgment, impulse control is fair. Clinical Presentation: passive suicidal ideation IVC Criteria per [place] GS 122C Dangerous to others Within the relevant past the individual No has inflicted or attempted to inflict or threatened to inflict serious bodily harm on another AND No that there is a reasonable probability that this conduct will be repeated as there is an absence of supervision or structure to prevent. OR No has acted in such a way as to create a substantial risk of serious bodily harm to another AND No that there is a reasonable probability that this conduct will be repeated as there is an absence of supervision or structure to prevent. OR No has engaged in extreme destruction of property AND NO that there is a reasonable probability that this conduct will be repeated as there is an absence of supervision or structure to prevent. Previous episodes of dangerousness to others, when applicable, may be considered when determining reasonable probability of future dangerous conduct. Clear, cogent, and convincing evidence that an individual has committed a homicide in the relevant past is prima facie evidence of dangerousness to others. Dangerous to self Within the relevant past the individual has done any of the following: acted in such a way as to show ALL of the following: No The individual would be unable without care, supervision, and the continued assistance of others not otherwise available, to exercise self- control, judgment, and discretion in the conduct of the individual's daily responsibilities and social relations or to satisfy the individual's need for nourishment, personal or medical care, fci, or self-protection and safety. AND No There is a reasonable probability of the individual suffering serious physical debilitation within the near future unless adequate treatment is given. A showing of behavior that is grossly irrational, of actions that the individual is unable to control, of behavior that is grossly inappropriate to the situa tion, or of other evidence of severely impaired insight and judgment shall create a prima facie inference that the individual is unable to care for himself or herself. OR yes has attempted suicide or threatened suicide AND No that there is a reasonable probability of suicide unless adequate treatment is given as there is an absence of supervision or structure to prevent suicide of patient who has made an attempt, serious gesture or threat. Patient reports that she did state last night she had thoughts of killing herself however denies intent reporting that she only just wanted to not have to deal with her stress. Patient denies wanting to today or having any thoughts of wanting to harm herself. Patient has an outpatient mental health provider with the [place]. Appointment for tomorrow at 1300 has been secured for the patient. Patient demonstrates forward thought processes and connection to obtaining her own place to live and possibly moving back to [place] where she has a support system. OR No has mutilated himself or herself or attempted to mutilate himself or herself AND No that there is a reasonable probability of serious self-mutilation unless adequate treatment is given as there is an absence of supervision or structure to prevent. NOTE: Previous episodes of dangerousness to self, when applicable, may be considered when determining reasonable probability of physical debilitation, suicide, or self-mutilation. Impression\\plan: Patient is cleared from acute psychiatric services. Patient identified making suicidal comment while extremely stressed last night upon arrival to [facility] ED. Patient denies intent stating she just wanted to not have to deal with the stressors. Patient is able to identify multiple stressors and engaged in problem-solving and forward thought processes. Patient has an outpatient mental health provider with the [place] and the behavioral health team was able to secure an appointment for the patient tomorrow at 1300. Patient identifies possibly trying group therapy in addition to individual therapy. Patient is encouraged to follow through with her appointment tomorrow with the [place] for both medication management and therapeutic services. Dr. Alanis was consulted to care management of this patient; attending physicians in agreement with recommendations and disposition.
[2020-05-26 14:22] VITALS: BP 118/82
--- NOTE | 2020-05-26 15:01 | EKG REPORT ---
SEVERITY:- OTHERWISE NORMAL ECG - SINUS TACHYCARDIA : Confirmed by: Benedicto Murry MD 26-May-2020 15:00:12
--- NOTE | 2020-05-26 15:09 | ER Document Report ---
Doctor's Note Notes: 05/26/20 13:30 Patient evaluated and she has no complaints at this time. She states she is doing well and feeling much better. She denies chest pain, shortness of breath at this time. PHYSICAL EXAMINATION: VITALS: Vitals reviewed and within normal limits. GENERAL: Well-appearing, well-nourished and in no acute distress. HEAD: Atraumatic, normocephalic. LUNGS: Breath sounds clear to auscultation bilaterally and equal. No wheezes rales or rhonchi. HEART: Regular rate and rhythm without murmurs. ABDOMEN: Soft, nontender, normoactive bowel sounds. No guarding, no rebound. No masses appreciated. PSYCH: Normal mood, normal affect. SKIN: Warm, Dry, normal turgor, no rashes or lesions noted. EKG 05/26/2020 00:33 -sinus tachycardia with a rate of 121. QTc 449. Normal axis. No T wave inversions or ST segment changes in consecutive leads. UA shows moderate leukocyte esterase. Patient denies dysuria or any urinary symptoms. Urine culture ordered. Psych is rescinding IVC paperwork as she does not meet criteria. Patient has an appointment tomorrow with psych services at the [facility]. Patient is happy with the recommendations from psych. Patient cleared both medically and by psychiatric services. At this time will discharge with return precautions and follow-up recommendations. Verbal discharge instructions given a the bedside and opportunity for questions given. Patient is in agreement with this plan and has verbalized understanding.
== END 2020-05-26 14:22 | disposition home or self-care (01) ==
LOC: ER 00:21
DX: R45.851 Suicidal ideations (principal); F32.9 Major depressive disorder, single episode, unspecified; F41.9 Anxiety disorder, unspecified; T43.226A Underdosing of selective serotonin reuptake inhibitors, initial encounter; T44.6X6A Underdosing of alpha-adrenoreceptor antagonists, initial encounter; Z91.128 Patient's intentional underdosing of medication regimen for other reason; Z91.14 Patient's other noncompliance with medication regimen; R07.9 Chest pain, unspecified; B99.9 Unspecified infectious disease; R00.0 Tachycardia, unspecified; I10 Essential (primary) hypertension; F17.210 Nicotine dependence, cigarettes, uncomplicated; Z88.8 Allergy status to other drugs, medicaments and biological substances
CPT/HCPCS: 36415; 71045; 80053; 80307; 81001; 82550; 84484; 84703; 85025; 87086; 93005; 93010; 99285